=== PATIENT | male | born 1995 | race Caucasian/White ===

== ENCOUNTER 2019-08-18 16:46 | Emergency (ER) | payer OTHER ==
[~2019-08-18] VITALS: Ht 172.7 cm; Wt 86.4 kg
--- NOTE | 2019-08-18 17:27 | NUR ---
DR ZAVALA AT BEDSIDE. PT ASSEMENT REV, AND POC DISCUSSED. CALL LIGHT W/I REACH, NAD NOTED. VSS.
[2019-08-18] MEDS ORDERED: SODIUM CHLORIDE 0.9% 1,000 ML IV ONE (17:43)
[2019-08-18] MEDS ORDERED: SODIUM CHLORIDE 0.9% 1,000ML IVBOLUS ONE (18:00)
[2019-08-18] MEDS ORDERED: SODIUM CHLORIDE FLUSH 10ML SYR IVF ONE (18:00)
[2019-08-18] MEDS ORDERED: ONDANSETRON 2MG/ML, 2ML IVPush ONE (18:00)
[2019-08-18 18:12] LABS: ALBUMIN 3.9 g/dL (3.4-5.0); ANION GAP 5 mmol/L (5-15); BASOPHILS % (AUTO) 0 % (0-1); CALCIUM 8.8 mg/dL (8.5-10.1); CHLORIDE 108 mmol/L (98-107); EOSINOPHILS # (AUTO) 0.31 x10^3/uL (0-0.4); EOSINOPHILS % (AUTO) 3 % (1-7); LYMPHOCYTES # (AUTO) 0.69 x10^3/uL (1-3.4); LYMPHOCYTES % (AUTO) 8 % (22-44); MD NO; MEAN CORPUSCULAR HGB CONC 33.5 g/dL (33.2-36.2); MEAN CORPUSCULAR VOLUME 86.6 fL (81-97); MEAN PLATELET VOLUME 9.7 fL (7.4-10.4); MONOCYTES # (AUTO) 0.52 x10^3/uL (0.2-0.8); MONOCYTES % (AUTO) 6 % (2-9); NEUTROPHILS # (AUTO) 7.57 x10^3/uL (1.8-6.8); NEUTROPHILS % (AUTO) 83 % (42-75); PLATELET COUNT 181 x10^3/uL (130-400); RED CELL DISTRIBUTION WIDTH 12.7 % (9.4-14.8)
[2019-08-18 18:15] LABS: ALANINE AMINOTRANSFERASE 50 U/L (12-78); ALKALINE PHOSPHATASE 122 U/L (45-117); BILIRUBIN,TOTAL 0.5 mg/dL (0.2-1.0); CREATININE 0.91 mg/dL (0.7-1.3); TOTAL PROTEIN 7.5 g/dL (6.4-8.2)
[2019-08-18] MEDS ORDERED: ONDANSETRON 2MG/ML, 2ML ONE (18:16)
[2019-08-18 18:30] LABS: RAPID INFLUENZA A Negative (Negative); RAPID INFLUENZA B Negative (Negative)
--- NOTE | 2019-08-18 18:33 | NUR ---
PT OOB AMBULATED TO BATHROOM UPRIGHT STEADY GAIT. VOIDED AND RTD TO ROOM W/O INCIDENT. PIV EST AND IVF INFUSING W/O DIFFICULTY, MED FOR NAUSEA. URINE SENT TO LAB. CALL LIGHT W/I REACH. VSS.
[2019-08-18 18:53] LABS: MICROSCOPIC NOT IND
[2019-08-18 18:58] LABS: CULTURE INDICATED? NO
--- NOTE | 2019-08-18 19:01 | NUR ---
BS REPORT RECEIVED FROM LOYD STEPHENS. PT RESTING ON [facility], UPDATED ON POC, MONITORING IN PLACE, FLUIDS RUNNING, CALL LIGHT WITHIN REACH. FMAILY AT BS FOR SUPPORT.
[2019-08-18 19:35] VITALS: BP 126/73
--- NOTE | 2019-08-18 19:35 | NUR ---
PT UP TO BR WITH STEADY GAIT. MONITORING REAPPLIED.
--- NOTE | 2019-08-18 19:36 | NUR ---
PT UP TO BR WITH STEADY GAIT.
[2019-08-18] MEDS ORDERED: KETOROLAC 30 MG/1 ML ONE ×2 (19:37→19:40)
[2019-08-18] MEDS ORDERED: KETOROLAC 30 MG/1 ML IVPush ONE (20:00)
== END 2019-08-18 20:23 | disposition home or self-care (01) ==
LOC: ED 20:00
DX: B34.9 Viral infection, unspecified (principal); R11.10 Vomiting, unspecified
CPT/HCPCS: 36415; 74022; 80053; 81003; 83690; 85025; 87400; 96361; 96374; 96375; 99284; J1885; J2405; J7030

== ENCOUNTER 2020-04-22 14:44 | Emergency (ER) | payer MEDICAID, OTHER ==
[~2020-04-22] VITALS: Ht 172.7 cm; Wt 77.2 kg
--- NOTE | 2020-04-22 15:16 | NUR ---
This is a 24 yo male coming in with c/o diffuse abd pain with intermittent n/v/d x24 hours. Patient states "I ate pizza the other night and it started not too long after that". Denies dysuria or hematuria. No other complaints at this time. Monitoring in place, vss, nadn. Does not want any pain medication at this time, denies nausea at this time as well. Call light in reach. UA collected and sent.
[2020-04-22 15:36] LABS: MICROSCOPIC INDICATED
[2020-04-22 15:47] LABS: BASOPHILS % (AUTO) 1 % (0-1); EOSINOPHILS % (AUTO) 4 % (1-7); LYMPHOCYTES % (AUTO) 21 % (22-44); MEAN CORPUSCULAR HEMOGLOBIN 28.8 pg (27.5-34.5); MEAN CORPUSCULAR HGB CONC 33.7 g/dL (33.2-36.2); MONOCYTES % (AUTO) 16 % (2-9); NEUTROPHILS % (AUTO) 58 % (42-75); PLATELET COUNT 210 x10^3/uL (130-400); RED BLOOD COUNT 5.77 x10^6/uL (4.38-5.82); RED CELL DISTRIBUTION WIDTH 12.9 % (9.4-14.8)
[2020-04-22 15:52] LABS: MD NO
[2020-04-22 15:56] LABS: ALANINE AMINOTRANSFERASE 27 U/L (12-78); ALBUMIN 4.1 g/dL (3.4-5.0); ANION GAP 4 mmol/L (5-15); CALCIUM 8.7 mg/dL (8.5-10.1); CHLORIDE 107 mmol/L (98-107); CREATININE 0.83 mg/dL (0.7-1.3)
[2020-04-22 15:59] LABS: ALKALINE PHOSPHATASE 111 U/L (45-117); BILIRUBIN,TOTAL 0.6 mg/dL (0.2-1.0); TOTAL PROTEIN 7.7 g/dL (6.4-8.2)
[2020-04-22] MEDS ORDERED: MORPHINE SULFATE 4 MG/ML, 1ML IVPush PRN (16:00)
[2020-04-22] MEDS ORDERED: ONDANSETRON 2MG/ML, 2ML IVPush ONE (16:00)
[2020-04-22] MEDS ORDERED: SODIUM CHLORIDE FLUSH 10ML SYR IVF ONE (16:00)
[2020-04-22] MEDS ORDERED: MORPHINE SULFATE 4 MG/ML, 1ML ONE (16:01)
[2020-04-22] MEDS ORDERED: ONDANSETRON 2MG/ML, 2ML ONE (16:01)
--- NOTE | 2020-04-22 16:12 | NUR ---
Patient medicated per emar
[2020-04-22] MEDS ORDERED: OMNIPAQUE 350 MG/ML, 100ML BOTTLE ONE (16:40)
--- NOTE | 2020-04-22 17:00 | NUR ---
Patient resting on gurney, respirations even and unlabored. VSS, monitoring in place. Call light in reach
[2020-04-22 17:40] VITALS: BP 117/89
--- NOTE | 2020-04-22 18:00 | NUR ---
Patient/Caregiver given discharge instructions and they have confirmed that they understand the instructions. Patient ambulatory with steady gait.
== END 2020-04-22 18:06 | disposition home or self-care (01) ==
LOC: ED 15:06
DX: R11.2 Nausea with vomiting, unspecified (principal); R10.84 Generalized abdominal pain; R19.7 Diarrhea, unspecified
CPT/HCPCS: 36415; 74021; 74177; 80053; 81001; 83690; 85025; 96374; 96375; 99285; J2270; J2405; Q9967